=== PATIENT | male | born 1975 | race Caucasian/White ===

== ENCOUNTER 2022-02-28 05:54 | Day surgery (SDC) | payer OTHER ==
[~2022-02-28] VITALS: Ht 180.3 cm; Wt 88.5 kg
[2022-02-28] MEDS ORDERED: diphenhydrAMINE 50 MG/ML VIAL ONE (07:08)
[2022-02-28] MEDS ORDERED: MIDAZOLAM 5 MG/5 ML VIAL ONE (07:09)
[2022-02-28] MEDS ORDERED: LIDOCAINE 2% 100 MG/5 ML UJET TP ONE (07:09)
[2022-02-28] MEDS ORDERED: fentaNYL citrate 0.05 MG/ML VIAL ONE (07:09)
[2022-02-28] MEDS ORDERED: fentaNYL citrate 0.05 MG/ML VIAL IVP ONE (08:20)
[2022-02-28] MEDS ORDERED: MIDAZOLAM 2 MG/2 ML VIAL IVP ONE (08:20)
[2022-02-28] MEDS ORDERED: diphenhydrAMINE 50 MG/ML VIAL IVP ONE (08:25)
== END 2022-02-28 08:35 | disposition home or self-care (01) ==
LOC: MOR 05:54 → MMU 05:55 → MOR 08:35
PROVIDERS: ATTEND Internal Medicine Gastroenterology
DX: Z12.11 Encounter for screening for malignant neoplasm of colon (principal); D12.4 Benign neoplasm of descending colon; K57.30 Diverticulosis of large intestine without perforation or abscess without bleeding; K57.32 Diverticulitis of large intestine without perforation or abscess without bleeding; I25.10 Atherosclerotic heart disease of native coronary artery without angina pectoris; I10 Essential (primary) hypertension; E11.9 Type 2 diabetes mellitus without complications; E78.5 Hyperlipidemia, unspecified; Z95.5 Presence of coronary angioplasty implant and graft; Z79.82 Long term (current) use of aspirin; Z79.899 Other long term (current) drug therapy; Z20.822 Contact with and (suspected) exposure to COVID-19
CPT/HCPCS: 45385; 87426; 88305; J1200; J2250; J3010